=== PATIENT | male | born 1995 | race Caucasian/White ===

== ENCOUNTER 2017-04-22 11:01 | Emergency (ER) | payer OTHER ==
[2017-04-22] MEDS ORDERED: IBUPROFEN 600 MG TAB PO ONE (12:24)
--- NOTE | 2017-04-22 12:28 | EDPHY ---
H & P Time Seen by Provider: 04/22/17 11:58 HPI/ROS: CHIEF COMPLAINT: Lower abdominal pain HISTORY OF PRESENT ILLNESS: 21-year-old male presents with lower abdominal pain. Onset suprapubic pain this morning. The pain is sharp and stabbing and comes and goes. Associated with nausea when he has the pain. 1 loose bowel movement this morning. Normal appetite. He is currently on antibiotics for a left otitis media. No urinary symptoms and no fever. REVIEW OF SYSTEMS: Constitutional: No fever, no chills Eyes: No visual changes ENT: No sore throat Respiratory: No cough, no shortness of breath Cardiac: No chest pain Genitourinary: No hematuria, no dysuria, no testicular pain Musculoskeletal: No leg pain or swelling Skin: No rash Neurological: No headache, no weakness Psychiatric: No depression Past Medical/Surgical History: Diaphragmatic hernia as Social History: Student at [employer] Smoking Status: Never smoked Physical Exam: General Appearance: Alert, pleasant Eyes: Pupils equal and round, no conjunctival pallor ENT, Mouth: Tympanic membranes normal, Mucous membranes moist Neck: Normal inspection Respiratory: Lungs are clear to auscultation Cardiovascular: Regular rate and rhythm Gastrointestinal: Abdomen is soft, left lower quadrant tenderness, no peritoneal signs Neurological: A&O, nonfocal, normal gait Skin: Warm and dry Extremities: Normal inspection Psychiatric: Mood and affect normal Constitutional: Initial Vital Signs Temperature (C) 36.4 C 04/22/17 11:05 Heart Rate 81 04/22/17 11:05 Respiratory Rate 16 04/22/17 11:05 Blood Pressure 115/63 04/22/17 11:05 O2 Sat (%) 97 04/22/17 11:05 O2 Delivery Mode Room Air Allergies/Adverse Reactions: amoxicillin Allergy (Verified 04/22/17 11:04) Penicillins Allergy (Verified 04/22/17 11:04) Home Medications: Medication Instructions Recorded Advair 250/50 (*) 04/22/17 Dede Allergy 04/22/17 Antibiiotic/Unknown 04/22/17 Montelukast Sodium 04/22/17 Medical Decision Making ED Course/Re-evaluation: This patient presents with suprapubic pain and 1 loose bowel movement. Abdominal exam reveals left lower quadrant tenderness and no peritoneal signs. Symptoms most likely related to antibiotics. No evidence of otitis media now. I will have him stop the antibiotics. Dip urinalysis is negative and I do not suspect kidney stone in this pt. White blood cell count is normal and he is currently pain free. Abdominal exam- left lower quadrant tenderness. I feel that he is safe and stable for discharge home. I doubt that he has appendicitis or other serious/surgical abd problem. Abdominal pain precautions given. Follow up in 12-24 hours if it persists. Differential Diagnosis: Differential diagnosis includes though it is not limited to appendicitis, cholecystitis, diverticulitis, pyelonephritis, bowel perforation, small bowel obstruction. - Data Points Laboratory Results: Laboratory Results 04/22/17 12:30 Medications Given: Discontinued Medications Ibuprofen (Motrin) 600 mg PO EDNOW ONE Stop: 04/22/17 12:25 Last Admin: 04/22/17 12:41 Dose: Not Given Departure - Departure Disposition: Home, Routine, Self-Care Clinical Impression: Abdominal pain Condition: Good Instructions: Acute Abdominal Pain (ED) Additional Instructions: Stop taking antibiotics. Sometimes we are unable to diagnose an obvious cause of abdominal pain in the Emergency Department. Based upon our evaluation today, we see no obvious explanation for your pain. Because more serious conditions can be difficult to diagnose early in the course of their presentation, we ask that you return to the Emergency Department in 12-24 hours for a recheck if you are still having pain. This is necessary to exclude the development of a more serious condition such as appendicitis or other intra-abdominal emergency. In the event your pain markedly increases before that time or you develop intractable vomiting or fever return to the Emergency Department immediately. Referrals: SHAQUILLE GRANDA [Other] - As per Instructions
[2017-04-22 12:41] LABS: PLATELET COUNT 185 10^3/uL (150-400)
[2017-04-22 13:40] VITALS: BP 114/62; PULSE 68; RESP 18; TEMP 98.4; O2SAT 98
== END 2017-04-22 13:44 | disposition home or self-care (01) ==
DX: R10.32 Left lower quadrant pain (principal)